=== PATIENT | male | born 1995 ===

== ENCOUNTER 2019-10-16 21:27 | Outpatient (REF) | payer BC, SELFPAY ==
[2019-10-19 12:04] LABS: SARS-CoV-2 RNA Undetected (Undetected); SARS-CoV-2 Specimen Source Nasal
== END 2019-10-16 21:47 ==
LOC: NCHCN 21:27
PROVIDERS: Visit Provider Family Medicine
DX: Z11.59 Encounter for screening for other viral diseases (principal)
CPT/HCPCS: U0003

== ENCOUNTER 2020-01-08 22:08 | Outpatient (REF) | payer BC, SELFPAY ==
[2020-01-11 12:56] LABS: COVID-19 RT-PCR Result NEGATIVE (Negative)
== END 2020-01-08 22:28 ==
LOC: NCHCN 22:08
PROVIDERS: Visit Provider Family Medicine
DX: Z11.59 Encounter for screening for other viral diseases (principal)
CPT/HCPCS: U0003